=== PATIENT | female | born 2000 | race Caucasian/White ===

== ENCOUNTER 2023-11-03 17:29 | Emergency (ER) | payer OTHER ==
[~2023-11-03] VITALS: Ht 160 cm; Wt 86.2 kg
[~2023-11-03 17:29] MED LIST: ALBU.083IS IH; ALBU90OI INH; AMOX250 PO; AZIT200SU PO; BC PILL; CEPH500 PO; CODGUAEL PO; FLUT44OIA IH; HYDACE5 PO; METPRE4DP PO; Naprosyn500 MG PO; Norco 5-325 Ta1 EACH PO; ONDA4 PO; PRED20; PRED20 PO; Percocet 5-3251 EACH PO; Prednisone20 MG PO; Ultram50 MG PO; Zofran Odt4 MG SL; Zofran Odt8 MG SL; Zofran8 MG PO
[2023-11-03 17:35] VITALS: BP 136/74
[2023-11-03] MEDS ORDERED: ONDA4ODT MM (19:32)
== END 2023-11-03 19:39 | disposition home or self-care (01) ==
LOC: ER 17:29
DX: R42 Dizziness and giddiness (principal); J45.909 Unspecified asthma, uncomplicated; Z79.899 Other long term (current) drug therapy; Z88.0 Allergy status to penicillin; Z88.5 Allergy status to narcotic agent
CPT/HCPCS: 99283; A9270